=== PATIENT | female | born 1995 ===

== ENCOUNTER 2018-06-30 15:23 | Emergency (ER) | payer OTHER ==
[2018-06-30 15:50] VITALS: BP 135/90; PULSE 78; RESP 16; TEMP 98.2; O2SAT 100
== END 2018-06-30 17:00 | disposition left against medical advice (07) ==
LOC: H.ER 15:23
DX: Z02.89 Encounter for other administrative examinations (principal)

== ENCOUNTER 2018-07-04 15:12 | Emergency (ER) | payer OTHER ==
[2018-07-04 15:26] VITALS: BP 123/65; PULSE 74; RESP 16; TEMP 98.1; O2SAT 100
--- NOTE | 2018-07-04 16:03 | ED PDOC ---
HPI: General Adult Time Seen by Provider: 07/04/18 15:35 Chief Complaint (Nursing): GI Problem Chief Complaint (Provider): Rash History Per: Patient History/Exam Limitations: no limitations Onset/Duration Of Symptoms: Days Current Symptoms Are (Timing): Still Present Additional Complaint(s): Lacie Rodriguez is a 22 year old female with no past medical history who is pr esenting to the ED for evaluation of rash on chest and arms onset yesterday. Patient states that rash is itchy and not associated with tightness in throat or shortness of breath. She notes one episode of abdominal pain and vomiting onset today and reports that she was recently started on antibiotics for a naval infection due to a belly button ring. She adds that she noted the rash prior to starting the medications. PMD: Mayco Reyna Past Medical History Reviewed: Historical Data, Nursing Documentation, Vital Signs Vital Signs: Last Vital Signs Temp 98.1 F 07/04/18 15:21 Pulse 74 07/04/18 15:21 Resp 16 07/04/18 15:21 BP 123/65 07/04/18 15:21 Pulse Ox 100 07/04/18 15:21 - Medical History PMH: Anemia (on iron supplements) - Surgical History Surgical History: No Surg Hx - Family History Family History: States: Unknown Family Hx - Social History Current smoker - smoking cessation education provided: No Alcohol: None Drugs: Denies - Home Medications Home Medications: Ambulatory Orders Medication Instructions Recorded Nitrofurantoin Macrocrystals 1 cap PO BID #14 cap 06/26/16 [Macrobid] Phenazopyridine [Phenazopyridine 200 mg PO Q12 PRN #0 tab 06/26/16 HCl] Cetirizine HCl [Zyrtec] 10 mg PO DAILY #10 capsule 07/04/18 Famotidine [Pepcid] 20 mg PO Q12 #20 tab 07/04/18 - Allergies Allergies/Adverse Reactions: Allergies Allergy/AdvReac Type Severity Reaction Status Date / Time No Known Allergies Allergy Verified 07/04/18 15:21 Review of Systems ROS Statement: Except As Marked, All Systems Reviewed And Found Negative ENT: Negative for: Throat Pain Respiratory: Negative for: Shortness of Breath Gastrointestinal: Positive for: Nausea, Vomiting, Abdominal Pain Skin: Positive for: Rash Physical Exam - Reviewed Nursing Documentation Reviewed: Yes Vital Signs Reviewed: Yes - Physical Exam Appears: Positive for: Non-toxic, No Acute Distress Head Exam: Positive for: ATRAUMATIC, NORMAL INSPECTION, NORMOCEPHALIC Skin: Positive for: Warm, Dry, Rash (skin is erythematous with faint maculopapular rash to chest and upper arms) Eye Exam: Positive for: EOMI, Normal appearance, PERRL ENT: Positive for: Normal ENT Inspection, Pharynx Is (clear). Negative for: Tonsillar Swelling Neck: Positive for: Normal, Painless ROM Cardiovascular/Chest: Positive for: Regular Rate, Rhythm. Negative for: Murmur Respiratory: Positive for: Normal Breath Sounds. Negative for: Wheezing, Respiratory Distress Gastrointestinal/Abdominal: Positive for: Soft, Other (Umbilicus with minimal erythema but no discharge ). Negative for: Tenderness Back: Positive for: Normal Inspection. Negative for: L CVA Tenderness, R CVA Tenderness Extremity: Positive for: Normal ROM. Negative for: Deformity, Swelling Neurologic/Psych: Positive for: Alert, Oriented. Negative for: Motor/Sensory Deficits - Laboratory Results Result Diagrams: 07/04/18 16:16 07/04/18 16:16 - ECG O2 Sat by Pulse Oximetry: 100 (RA) Pulse Ox Interpretation: Normal Medical Decision Making Medical Decision Making: Time: 15:53 Plan: --CMP --ED Urine --ED Urine Dipstick --CBC --Benadryl 25 mg PO --IV Fluids --Pepcid 20 mg IVP Scribe Attestation: Documented byYisel acting as a scribe for Baldemar Metzger MD. Provider Scribe Attestation: All medical record entries made by the Scribe were at my direction and personally dictated by me. I have reviewed the chart and agree that the record accurately reflects my personal performance of the history, physical exam, medical decision making, and the department course for this patient. I have also personally directed, reviewed, and agree with the discharge instructions and disposition. Disposition - Clinical Impression Clinical Impression: Allergic reaction - Patient ED Disposition Is Patient to be Admitted: No Counseled Patient/Family Regarding: Studies Performed, Diagnosis, Need For Follo wup, Rx Given - Disposition Referrals: Mayco Reyna MD [Family Provider] - Disposition: Routine/Home Disposition Time: 17:51 Condition: FAIR Prescriptions: Cetirizine HCl [Zyrtec] 10 mg PO DAILY #10 capsule Famotidine [Pepcid] 20 mg PO Q12 #20 tab Instructions: Skin Rash Forms: [facility] (Turkmen)
[2018-07-04 16:20] LABS: BASO # 0.1 K/uL (0.0-0.2); BASO % 0.4 % (0.0-2.0); EOS # 0.2 K/uL (0.0-0.7); EOS % 1.4 % (0.0-4.0); HEMOGLOBIN 13.2 g/dL (12.0-16.0); LYMPH % 17.2 % (20.0-40.0); MEAN CELL VOLUME 93.5 fl (81.0-99.0); MEAN CORPUSCULAR HEMOGLOBIN 31.6 pg (27.0-31.0); MEAN CORPUSCULAR HGB CONC 33.8 g/dL (33.0-37.0); MEAN PLATELET VOLUME 7.8 fl (7.2-11.7); MONO # 0.7 K/uL (0.0-0.8); NEUT # 8.6 K/uL (1.8-7.0); RBC 4.17 Mil/uL (3.80-5.20); RED CELL DISTRIBUTION WIDTH 12.3 % (11.5-14.5); WHITE BLOOD COUNT 11.4 K/uL (4.8-10.8)
[2018-07-04 16:32] LABS: ALB/GLOB RATIO 1.4 (1.0-2.1); ALBUMIN 4.3 g/dL (3.5-5.0); ALT/SGPT 35 U/L (9-52); AST/SGOT 33 U/L (14-36); BLOOD UREA NITROGEN 11 mg/dl (7-17); CALCIUM 9.1 mg/dL (8.4-10.2); GFR NON-AFRICAN AMERICAN > 60
[2018-07-04] MEDS: Sodium Chloride 0.9% 1,000 ML IV STA (16:47)
== END 2018-07-04 18:30 | disposition home or self-care (01) ==
LOC: H.ER 15:12
DX: T78.40XA Allergy, unspecified, initial encounter (principal)
CPT/HCPCS: 80053; 81025; 85025; 96361; 96374; 99283; J7030

== ENCOUNTER 2018-07-24 07:17 | Emergency (ER) | payer OTHER ==
[2018-07-24 07:26] VITALS: BP 122/76; PULSE 66; RESP 16; TEMP 97.8; O2SAT 100
[2018-07-24 07:27] VITALS: BMI 28.1
--- NOTE | 2018-07-24 08:16 | ED PDOC ---
HPI: Female Pain Time Seen by Provider: 07/24/18 07:41 Chief Complaint (Nursing): Female Genitourinary Chief Complaint (Provider): Female Genitourinary History Per: Patient Onset/Duration Of Symptoms: Days (x2 days) Additional Complaint(s): Carissa Ramesh is a 22 year old female with a past medical history of anemia, who presents to the emergency department complaining of dysuria and urinary problems, onset x2 days. Patient states she has suprapubic pain, pain with urination and frequency. She states she is currently menstruating and is sexually active. Patient denies any fever, vomiting or back pain. PMD: Mayco Reyna LMP: is currently on menstrual period Past Medical History Reviewed: Historical Data, Nursing Documentation, Vital Signs Vital Signs: Last Vital Signs Temp 97.8 F 07/24/18 07:22 Pulse 66 07/24/18 07:22 Resp 16 07/24/18 07:22 BP 122/76 07/24/18 07:22 Pulse Ox 100 07/24/18 07:22 - Medical History PMH: Anemia (on iron supplements) - Surgical History Surgical History: No Surg Hx - Family History Family History: States: Unknown Family Hx - Home Medications Home Medications: Ambulatory Orders Medication Instructions Recorded Nitrofurantoin Macrocrystals 1 cap PO BID #14 cap 06/26/16 [Macrobid] Phenazopyridine [Phenazopyridine 200 mg PO Q12 PRN #0 tab 06/26/16 HCl] Cetirizine HCl [Zyrtec] 10 mg PO DAILY #10 capsule 07/04/18 Famotidine [Pepcid] 20 mg PO Q12 #20 tab 07/04/18 Nitrofurantoin Macrocrystals 100 mg PO BID #14 cap 07/24/18 [Macrobid] Phenazopyridine HCl [Pyridium] 100 mg PO TID #9 tablet 07/24/18 - Allergies Allergies/Adverse Reactions: Allergies Allergy/AdvReac Type Severity Reaction Status Date / Time No Known Allergies Allergy Verified 07/04/18 15:21 Review of Systems ROS Statement: Except As Marked, All Systems Reviewed And Found Negative Constitutional: Negative for: Fever Gastrointestinal: Negative for: Vomiting Genitourinary Female: Negative for: Dysuria, Frequency Musculoskeletal: Negative for: Back Pain Physical Exam - Reviewed Nursing Documentation Reviewed: Yes Vital Signs Reviewed: Yes - Physical Exam Appears: Positive for: No Acute Distress (comfortable) Head Exam: Positive for: ATRAUMATIC, NORMOCEPHALIC Eye Exam: Positive for: EOMI Cardiovascular/Chest: Positive for: Regular Rate, Rhythm. Negative for: Murmur Respiratory: Positive for: Normal Breath Sounds. Negative for: Respiratory Distress Gastrointestinal/Abdominal: Positive for: Soft, Tenderness (suprapubic tenderness) Back: Positive for: Normal Inspection. Negative for: L CVA Tenderness, R CVA Tenderness, Vertebral Tenderness Neurologic/Psych: Positive for: Alert, Oriented (x3) - ECG O2 Sat by Pulse Oximetry: 100 (RA) Pulse Ox Interpretation: Normal Medical Decision Making Medical Decision Making: Time: 743 Impression: UTI and cystitis Plan: --ED urine dipstick --Urinalysis Urine dip revealed blood and leukocytes. Scribe Attestation: Documented by Mauricio Kraft, acting as a scribe for Jian Ovalle MD. Provider Scribe Attestation: All medical record entries made by the Scribe were at my direction and personally dictated by me. I have reviewed the chart and agree that the record accurately reflects my personal performance of the history, physical exam, medical decision making, and the department course for this patient. I have also personally directed, reviewed, and agree with the discharge instructions and disposition. Disposition - Clinical Impression Clinical Impression: Urinary tract infection - Patient ED Disposition Is Patient to be Admitted: No Doctor Will See Patient In The: Office Counseled Patient/Family Regarding: Studies Performed, Diagnosis, Need For Followup - Disposition Referrals: Mayco Reyna MD [Family Provider] - Disposition: Routine/Home Disposition Time: 08:20 Condition: GOOD Additional Instructions: CARISSA RAMESH, thank you for letting us take care of you today. Your provider was Jian Ovalle MD and you were treated for PAIN WHEN URINATING. The emergency medical care you received today was directed at your acute symptoms. If you were prescribed any medication, please fill it and take as directed. It may take several days for your symptoms to resolve. Return to the Emergency Department if your symptoms worsen, do not improve, or if you have any other problems. Please contact your doctor or call one of the physicians/clinics you have been referred to that are listed on the Patient Visit Information form that is included in your discharge packet. Bring any paperwork you were given at discharge with you along with any medications you are taking to your follow up visit. Our treatment cannot replace ongoing medical care by a primary care provider outside of the emergency department. Thank you for allowing the [facility] team to be part of your care today. If you had an X-Ray or CT scan: A Radiologist will review the ED reading if any change in treatment is needed we will contact you. If you had a blood, urine, or wound culture: It will take several days for the results, if any change in treatment is needed we will contact you. If you had an STI test: It will take 48 hours for the results. Please call after 1 week if you have not heard back. Prescriptions: Nitrofurantoin Macrocrystals [Macrobid] 100 mg PO BID #14 cap Phenazopyridine HCl [Pyridium] 100 mg PO TID #9 tablet Instructions: Urinary Tract Infection, Adult (DC)
[2018-07-24 08:55] LABS: SQUAMOUS EPITHIAL < 1 /hpf (0-5); URINE BACTERIA RARE (<OCC); URINE BILIRUBIN NEGATIVE (NEGATIVE); URINE BLOOD LARGE (NEGATIVE); URINE CLARITY CLEAR (Clear); URINE COLOR COLORLESS (YELLOW); URINE GLUCOSE (UA) NEG (NEGATIVE); URINE LEUKOCYTE ESTERASE MOD Leu/uL (Negative); URINE PROTEIN NEGATIVE (NEGATIVE); URINE UROBILINOGEN 0.2-1.0 mg/dL (0.2-1.0)
== END 2018-07-24 08:20 | disposition home or self-care (01) ==
LOC: H.ER 07:17
DX: N39.0 Urinary tract infection, site not specified (principal)